=== PATIENT | male | born 2000 | race Caucasian/White ===

== ENCOUNTER 2020-06-18 23:50 | Emergency (ER) | payer OTHER, SELFPAY ==
[~2020-06-18] VITALS: Ht 162.6 cm; Wt 65.9 kg
[2020-06-19] MEDS ORDERED: ISOVUE-370 76% 100ML VIAL As Ordered ONE (00:42)
[2020-06-19] MEDS ORDERED: NS 1,000 ML IV ONE (00:45)
[2020-06-19] MEDS ORDERED: ONDANSETRON 4MG/2ML VIAL IV ONE (00:45)
[2020-06-19 01:05] LABS: BASO % 0.4 % (0.0-1.0); EOS # 0.1 10^3/uL (0.0-0.5); EOS % 0.7 % (0.0-3.0); HEMATOCRIT 44.1 % (42.0-52.0); HEMOGLOBIN 15.2 g/dl (13.5-17.5); LYMPH # 2.2 10^3/uL (1.5-5.0); LYMPH % 23.1 % (24.0-44.0); MEAN CORPUSCULAR HEMOGLOBIN 30.4 pg (27.0-33.0); MEAN CORPUSCULAR HGB CONC 34.5 g/dl (32.0-36.5); MEAN CORPUSCULAR VOLUME 88.2 fl (80.0-96.0); MONO # 0.8 10^3/uL (0.0-0.8); MONO % 8.9 % (0.0-5.0); NEUTROPHILS # 6.3 10^3/uL (1.5-8.5); NEUTROPHILS % 66.6 % (36.0-66.0); PLATELET COUNT, AUTOMATED 223 10^3/uL (150-450); WHITE BLOOD COUNT 9.4 10^3/uL (4.0-10.0)
--- NOTE | 2020-06-19 01:49 | REPVR ---
PROCEDURE INFORMATION: Exam: CT Abdomen And Pelvis With Contrast Exam date and time: 06/19/2020 12:34 AM Age: 20 years old Clinical indication: Abdominal pain; Periumbilical; Additional info: Abd pain at umbilicus radiating to R side R/O appendicitis TECHNIQUE: Imaging protocol: Computed tomography of the abdomen and pelvis with intravenous contrast. Radiation optimization: All CT scans at this facility use at least one of these dose optimization techniques: automated exposure control; mA and/or kV adjustment per patient size (includes targeted exams where dose is matched to clinical indication); or iterative reconstruction. Contrast material: ISO; Contrast volume: 100 ml; Contrast route: INTRAVENOUS (IV); COMPARISON: No relevant prior studies available. FINDINGS: Liver: Mild hepatomegaly. Gallbladder and bile ducts: Normal. No calcified stones. No ductal dilation. Pancreas: Normal. No ductal dilation. Spleen: Normal. No splenomegaly. Adrenal glands: Normal. No mass. Kidneys and ureters: Normal. No hydronephrosis. Stomach and bowel: Unremarkable. No obstruction. No mucosal thickening. Appendix: Fluid-filled distended inflamed appendix measuring up to 1.4 cm in diameter. Intraperitoneal space: Unremarkable. No free air. No significant fluid collection. Vasculature: Unremarkable. No abdominal aortic aneurysm. Lymph nodes: Unremarkable. No enlarged lymph nodes. Urinary bladder: Unremarkable as visualized. Reproductive: Unremarkable as visualized. Bones/joints: Unremarkable. No acute fracture. Soft tissues: Small fat containing umbilical hernia. IMPRESSION: Acute appendicitis. Electronically signed by: Tam Puentes On 06/19/2020 01:49:14 AM
[2020-06-19 01:53] LABS: ALBUMIN 4.4 GM/DL (3.2-5.2); BILIRUBIN,DIRECT 0.2 MG/DL (0.0-0.2); BILIRUBIN,TOTAL 0.7 MG/DL (0.2-1.0); TOTAL PROTEIN 7.6 GM/DL (6.4-8.2)
[2020-06-19] MEDS ORDERED: PIPERACILLIN/TAZOBACTAM SOD 3.375 GM in D5W MINI-BAG PLUS 50 ML IV ONE (02:00)
[2020-06-19] MEDS ORDERED: NS 1,000 ML IV SCH (02:09)
[2020-06-19] MEDS ORDERED: ACETAMINOPHEN TAB 650MG DOSE (2X325MG) PO PRN (02:15)
[2020-06-19] MEDS ORDERED: MORPHINE 4 MG/ML 1ML VIAL/SYRINGE (J2270) IV PRN (02:15)
[2020-06-19] MEDS ORDERED: KETOROLAC 30 MG/ML 1ML VIAL IV PRN (02:15)
[2020-06-19] MEDS ORDERED: MORPHINE 2 MG/ML 1ML VIAL (J2270) IV PRN (02:15)
[2020-06-19] MEDS ORDERED: PIPERACILLIN/TAZOBACTAM SOD 3.375 GM in D5W MINI-BAG PLUS 50 ML IV SCH (08:00)
[2020-06-19] MEDS ORDERED: ZOSYN 3.375GM VIAL (J2543) As Ordered ONE (08:16)
[2020-06-19 08:41] LABS: HEMATOCRIT 41.1 % (42.0-52.0); HEMOGLOBIN 13.8 g/dl (13.5-17.5); MEAN CORPUSCULAR HEMOGLOBIN 30.5 pg (27.0-33.0); MEAN CORPUSCULAR HGB CONC 33.6 g/dl (32.0-36.5); MEAN CORPUSCULAR VOLUME 90.7 fl (80.0-96.0); PLATELET COUNT, AUTOMATED 200 10^3/uL (150-450); RED BLOOD COUNT 4.53 10^6/uL (4.30-6.10); WHITE BLOOD COUNT 7.7 10^3/uL (4.0-10.0)
[2020-06-19 08:54] LABS: ALBUMIN 3.8 GM/DL (3.2-5.2); ALT/SGPT 16 U/L (12-78); BILIRUBIN,TOTAL 0.9 MG/DL (0.2-1.0); BLOOD UREA NITROGEN 7 MG/DL (7-18); CALCIUM LEVEL 8.6 MG/DL (8.5-10.1); CARBON DIOXIDE LEVEL 28 MEQ/L (21-32); CHLORIDE LEVEL 108 MEQ/L (98-107); GLOMERULAR FILTRATION RATE > 60.0 (>60); GLUCOSE, FASTING 96 MG/DL (70-100); LIPASE 754 U/L (73-393); POTASSIUM SERUM 3.9 MEQ/L (3.5-5.1); SODIUM LEVEL 141 MEQ/L (136-145); TOTAL PROTEIN 6.3 GM/DL (6.4-8.2)
[2020-06-19 10:42] VITALS: BP 128/75
--- NOTE | 2020-06-20 10:27 | HPE ---
DATE OF ADMISSION: 06/19/2020 HISTORY OF PRESENT ILLNESS: The patient underwent evaluation in the emergency room and on evaluation, his white count was normal. He was complaining about abdominal pain and generalized abdominal pain that was in the periumbilical area. Essentially ended up having abdominal pain and was worked up in the emergency room. They essentially called me for a CT scan, which read a dilated appendix consistent with appendicitis. However, when I was reviewing the CT scan I felt that I could see the appendix lateral to this dilated area that they were discussing and I felt this needed to be reviewed with the radiologist. More importantly, the patient had eaten dinner at 7:30 at night and required to be n.p.o. for a significant amount of time. Thus at this point, the patient was given admission orders, placed on IV antibiotics, and was in the emergency room. Follow-up labs were obtained in the morning after examining the patient, which revealed the patient stated that his abdominal pain was much improved from last night, and his white count was still normal, but this time with no evidence of a shift. He was afebrile. One abnormality on laboratory findings was an elevated lipase originally of 2100 and this has dropped down to 750. During this time, I also reviewed the CT scan with Vik Bezn, one of the radiologists here, and we evaluated this for the pancreas area, which showed no evidence of pancreatic inflammation and he felt that the area in question that suggested that it was the appendix was actually a loop of bowel, probably the terminal ileum that they were noticing on the earlier read. In any case, on reevaluation in the emergency room, the patient was still continuing to do well, and I discussed with him discharge to home and follow-up as an outpatient. PAST MEDICAL HISTORY: None. PAST SURGICAL HISTORY: None. MEDICATIONS: None. ALLERGIES: None. PHYSICAL EXAMINATION: GENERAL: Reveals a 20-year-old male who looks his stated age. HEENT: Unremarkable. NECK: Supple without adenopathy. LUNGS: Clear anteriorly. HEART: Regular. ABDOMEN: Soft. Most of his tenderness as described by the ER was mid abdomen, although he did state that it was slightly off to the right hand side of his umbilicus; not in the right lower quadrant and not in the inguinal area where we can almost see the appendix sliding past the vessels in this area. In any case, no tenderness or peritoneal signs were appreciated in the right lower quadrant. IMPRESSION AND PLAN: 1. No evidence of appendicitis on CT scan, his white count is normal, and I feel that it is not secondary to antibiotic treatment and thus, operative treatment is not necessary at this time for appendicitis given no evidence on review of the CT scan/white count and physical exam. 2. Elevated lipase. At this point, etiology of this is undetermined although he does not have any inflammatory change around the gallbladder, no evidence of gallstones, and no evidence of pancreatic inflammation. I have recommended that he start on a clear liquid diet and then, advance his diet slowly. 3. Discharge. We will have him follow up in a couple of weeks and at that point, it is reasonable to check laboratory evaluation and he may need further workup by gastroenterology (GI) if he still has an elevated lipase. AKASH
== END 2020-06-19 10:45 | disposition home or self-care (01) ==
LOC: M ED 23:50 → M SDC 06-19 02:15
DX: R10.84 Generalized abdominal pain (principal); R74.8 Abnormal levels of other serum enzymes
CPT/HCPCS: 36415; 80047; 80053; 81001; 83690; 85025; 85027; 96361; 96365; 96366; 96375; 99284; J2405; J2543; Q9967; U0002